=== PATIENT | male | born 1965 | race Caucasian/White ===

== ENCOUNTER 2020-06-15 09:49 | Day surgery (SDC) | payer OTHER ==
[~2020-06-15] VITALS: Ht 182.9 cm; Wt 77.7 kg
[~2020-06-15 09:49] MED LIST: ASPI81CH PO; LISI20 PO; NAPR220 PO; NAPR500 PO
[2020-06-15] MEDS ORDERED: HYDROCODONE-AC1 EAC7 PO (10:09)
--- NOTE | 2020-06-15 18:27 | NUR ---
PT HAS BEEN STABLE POST OP. PT STILL HAS NUMBNESS IN BLE. SENSATION AT CAL[place] AREA. HAS NOT BEEN OOB YET. DENIES PAIN AND NAUSEA. PAS, TEDS AND POLAR PACK IN PLACE. PT EATING AND DRINKING WELL. CONT IV FLUIDS. PT HAS NOT VOIDED YET POST OP. STRAIGHT CATH'S IN PACU. WILL BLADDER SCAN NEEDED. AQUACEL TO RIGHT KNEE CDI. PT USES CALL LIGHT APPROPRIATELY NEEDED.
--- NOTE | 2020-06-16 03:02 | NUR ---
SHIFT SUMMARY: POD 1 RIGHT PARTIAL KNEE REPLACEMENT PATIENT IS ALERT AND ORIENTED X4 WHILE AWAKE. HE HAS BEEN ASLEEP MAJORITY OF THE SHIFT. VS ARE WNL AND IS ON RA. PAIN IS MANAGED WITH 2 PO CECILLE'S, TYLENOL, TORADOL, AND FOR BREAK THROUGH USING 0.5 IV DILAUDID. PATIENT HAS AMBULATED DOWN THE HALLWAY, TO THE BATHROOM, AND BACK TO BED. HE TOLERATED IT VERY WELL. PATIENT USES A FWW AND GAIT BELT A SBA. ICE IS BEING APPLIED TO THE KNEE. GRZEGORZEL IS C/D/I. CALLS APPROPRIATELY. CALL LIGHT WITHIN REACH. THE PLAN IS TO HAVE PT DONE LATER TODAY.
[2020-06-16 04:30] LABS: BASOPHILS ABSOLUTE AUTO 0.02 K/mm3 (0.00-0.23); BASOPHILS PERCENT AUTO 0 % (0-2); EOSINOPHILS ABSOLUTE AUTO 0.06 K/mm3 (0.00-0.68); EOSINOPHILS PERCENT AUTO 1 % (0-6); Hematocrit 33.8 % (37.0-53.0); Hemoglobin 11.1 g/dL (13.5-17.5); IMMATURE GRAN ABSOLUTE AUTO 0.05 K/mm3 (0.00-0.10); IMMATURE GRAN PERCENT AUTO 1 % (0-1); LYMPHOCYTES ABSOLUTE AUTO 1.25 K/mm3 (0.84-5.20); LYMPHOCYTES PERCENT AUTO 13 % (21-46); MONOCYTES ABSOLUTE AUTO 0.63 K/mm3 (0.16-1.47); MONOCYTES PERCENT AUTO 6 % (4-13); Mean Corpuscular HGB 28.8 pg (26.0-34.0); Mean Corpuscular HGB Conc 32.8 g/dL (31.5-36.5); Mean Corpuscular Volume 88 fL (80-100); Mean Platelet Volume 9.9 fL (9.1-12.4); NEUTROPHILS ABSOLUTE AUTO 7.84 K/mm3 (1.96-9.15); NEUTROPHILS PERCENT AUTO 80 % (41-73); Platelet Count 228 K/mm3 (150-400); RDW Standard Deviation 41.6 fL (35.1-46.3); Red Blood Cell Count 3.86 M/mm3 (4.30-5.90); White Blood Cell Count 9.85 K/mm3 (4.00-11.30)
[2020-06-16 04:46] LABS: Anion Gap 8 mmol/L (6-16); Blood Urea Nitrogen 23 mg/dL (8-24); Bun/Creatinine Ratio 29.2 (12.0-20.0); CO2, Blood 23 mmol/L (21-32); Calcium, Blood 8.6 mg/dL (8.5-10.1); Chloride, Blood 108 mmol/L (98-108); Creatinine, Blood 0.79 mg/dL (0.60-1.20); Glomerular Filtration Rate >60 (60-); Glucose, Blood 104 mg/dL (70-99); Sodium, Blood 139 mmol/L (136-145)
[2020-06-16] MEDS ORDERED: OXAYDO5 M1 PO (08:49)
[2020-06-16] MEDS ORDERED: ACET500 PO (08:58)
[2020-06-16] MEDS ORDERED: ASPI81CH PO (08:59)
--- NOTE | 2020-06-16 12:16 | NUR ---
DISCHARGE SUMMARY PT POD #1 FOR A PARTIAL RIGHT KNEE. C/O PAIN X2 THIS SHIFT. MORE PAINFUL AFTER WORKING WITH PHYSICAL THERAPY. WORKED WITH PHYSICAL THERAPY AND WAS CLEARED TO BE DISCHARGED. IV DC'D WNL. DISCHARGE EDUCATION PROVIDED TO PT AND HE VERBALIZED UNDERSTANDING OF INSTRUCTIONS. DISCHARGED HOME WITH .
== END 2020-06-16 12:10 | disposition home or self-care (01) ==
LOC: ORSCMMR 09:49 → ORD 14:00 → SURS 15:35 → ORSCMMR 06-16 12:10
PROVIDERS: Orthopaedic Surgery
PROC: 0SRC0L9 Replacement of Right Knee Joint with Medial Unicondylar Synthetic Substitute, Cemented, Open Approach (ICD-10-PCS; principal; 2020-06-15 14:00)
PROC: 8E0Y0CZ Robotic Assisted Procedure of Lower Extremity, Open Approach (ICD-10-PCS; principal; 2020-06-15 14:00)
DX: M17.11 Unilateral primary osteoarthritis, right knee (principal); I10 Essential (primary) hypertension; Z87.891 Personal history of nicotine dependence; Z79.899 Other long term (current) drug therapy
CPT/HCPCS: 27446; 20985; S2900; 36415; 73560-RT; 80048; 83735; 85025; 97110; 97116; 97161; 97530; A9270; A9270-GY; C1713; C1776; J0171; J0690; J0735; J1100; J1170; J1885; J2250; J2405; J2704; J2795; J7120